=== PATIENT | female | born 1990 | race American Indian/Alaskan Native ===

== ENCOUNTER 2016-12-18 08:34 | Emergency (ER) | payer BC ==
[2016-12-18 08:54] VITALS: BP 131/88
[2016-12-18 09:08] LABS: Basophils % (Auto) 0.5 % (0.0-1.8); Eosinophils % (Auto) 0.1 % (0.0-4.3); Hematocrit 39.1 % (30.3-42.9); Hemoglobin 13.4 gm/dl (10.1-14.3); Mean Corpuscular HGB Conc 34 % (30-34); Mean Corpuscular Hemoglobin 32 pg (28-32); Mean Corpuscular Volume 93 fl (79-97); Platelet Count 240 K/mm3 (140-440); Red Cell Distribution Width 12.3 % (13.2-15.2); White Blood Count 9.1 K/mm3 (4.5-11.0)
[2016-12-18 09:25] LABS: Anion Gap 17 mmol/L; Blood Urea Nitrogen 10 mg/dL (7-17); Calcium 9.2 mg/dL (8.4-10.2); Carbon Dioxide 23 mmol/L (22-30); Glucose 96 mg/dL (65-100); Potassium 3.6 mmol/L (3.6-5.0); Sodium 135 mmol/L (137-145)
[2016-12-18 09:39] LABS: Bilirubin,Urine NEG (Negative); Blood,Urine NEG (Negative); Ketones,Urine 80 mg/dL (Negative); Leukocyte Esterase,Urine NEG (Negative); Mucus,Urine 3+ /HPF; Nitrite,Urine NEG (Negative); Urobilinogen,Urine < 2.0 mg/dL (<2.0)
[2016-12-18] MEDS ORDERED: ZOFRAN IV ONE (09:50)
[2016-12-18] MEDS ORDERED: LACTATED RINGERS 1,000 ML IV ONE (09:50)
--- NOTE | 2016-12-19 22:07 | Emergency Department Report ---
Entered by KENNY RODRIGUEZ, acting as scribe for PETTY XIAO NP. Vomiting/Diarrhea - HPI Chief Complaint: Nausea/Vomiting/Diarrhea Stated Complaint: VOMITTING PAST 3 DAYS Time Seen by Provider: 12/18/16 09:37 Duration: 3 Days Severity: moderate Nausea/Vomiting Severity: Mild Diarrhea Severity: None Pain Location: Other (no associated pain) Pain Severity: None Symptoms: No Watery Diarrhea, No Bloody diarrhea, No Fever, No Able to Tolerate Fluids (unable to tolerate food and fluid PO intake), No Recent Unusual Foods, No Recent Untreated Water, No Recent use of Antibiotics, No Family w/ Similar Symptoms, No Contacts w/ Similar Symptoms, No Rash, No Hematuria, No Recent URI Symptoms Other History: 26 year old female that is currently 6 weeks presents to the ED c/o nausea and vomiting that began 3 days ago. Patient states that she is unable to tolerate fluid and food PO intake. Notes last vomiting episode was last night. Denies vaginal bleeding, discharge, abdominal pain, SOB, fever, and chills. Denies any problems with her previous . Patient notes that her last [facility] appointment was last year, but states she has an appointment with her OB for this on 12/30/2016. LMP 12/04/2016. NKDA. ED Review of Systems ROS: Stated complaint: VOMITTING PAST 3 DAYS Other details as noted in HPI Comment: All other systems reviewed and negative Constitutional: other (not able to tolerate fluid and food PO intake). denies: chills, fever, weakness Eyes: denies: eye pain, eye discharge, vision change ENT: denies: throat pain Respiratory: denies: cough, orthopnea, shortness of breath, SOB with exertion, SOB at rest Cardiovascular: denies: chest pain Endocrine: no symptoms reported Gastrointestinal: nausea, vomiting. denies: abdominal pain, diarrhea Genitourinary: denies: dysuria, discharge, other (vaginal bleeding) Musculoskeletal: denies: back pain, joint swelling Skin: denies: rash Neurological: denies: numbness Psychiatric: denies: anxiety, depression Hematological/Lymphatic: denies: easy bleeding, easy bruising ED Past Medical Hx - Past Medical History Previous Medical History?: Yes Additional medical history: vaginal delivery 10-13-11 - Surgical History Past Surgical History?: No - Social History Smoking Status: Current Some Day Smoker Substance Use Type: Alcohol, Marijuana, Other - Medications Home Medications: Home Medications Medication Instructions Recorded Confirmed Last Taken Type Doxylamine/Pyridoxine HCl 1 each PO BID PRN 14 Days 12/18/16 Unknown Rx [Diclegis Dr 10-10 mg Tablet] Vomiting Diarrhea Exam - Exam General: Vital signs noted. No distress. Alert and acting appropriately. General: No apparent distress, normal gait, atraumatic. HEENT: No Pharyngeal Erythema, No Pharyngeal Exudates, No Moist Mucous Membranes , No Rhinorrhea, No Conjuctival Injection, No Frontal Tenderness, No Maxillary Tenderness Neck: No Adenopathy, No Rigidity Lungs: Yes Clear Lung Sounds, Yes Good Air Exchange, No Wheezes, No Stridor, No Cough, No Nasal Flaring, No Retractions, No Use of Accessory Muscles Heart exam: Regular: Yes, Murmur: No, Tachycardia: No Abdomen: Tenderness: No, Peritoneal Signs: No, Distention: No (patient is currently 6 weeks ), Hyperactive Bowel sounds: No Skin exam: Rash: No, Edema: No, Normal turgor: Yes Neurologic: Neurologic: Patient is alert and oriented x 3 , no deficits. Musculoskeletal: Unremarkable. Musculoskeletal: FROM, no tenderness. Exam: - Head Exam: atraumatic, normocephalic. - Back Exam: normal inspection. -Psychiatric exam: Present: normal affect, normal mood ED Course Vital Signs 12/18/16 08:50 Temperature 98.8 F Pulse Rate 62 Respiratory 20 Rate Blood Pressure 131/88 O2 Sat by Pulse 100 Oximetry - Reevaluation(s) Reevaluation #1: 12/18/16 11:16 Patient states was much better. Denies any nausea or vomiting currently. Reevaluation #2: 12/18/16 11:16 By mouth challenge. Patient tolerated well to apple juices. No vomiting or nausea noted. 12/18/16 11:16 ED Medical Decision Making - Lab Data Result diagrams: 12/18/16 09:00 12/18/16 09:00 - Medical Decision Making Ed course: This is a 26-year-old female that presents with nausea vomiting 3 days. Patient is 6 weeks . 1-lactating Ringer's bolus IV administered in the ED 2- Zofran 4 mg IV administered in the ED. 3- patient does not seem toxic or ill appearance. No any sign of distress. 4- attempted to perform ultrasound for heart rate. Due to this patient age unable to hear accurate heart rate. 5-patient agrees with discharge plan. No signs of any distress noted. Patient stated no further questions noted. 6- patient stated will follow-up with her [facility] appointment date. 7- I instructed the patient to increase fluids as much as possible. 8- prescribed [id number] by mouth and gave special instructions on how to take them. Critical care attestation.: If time is entered above; I have spent that time in minutes in the direct care of this critically ill patient, excluding procedure time. ED Disposition Clinical Impression: Hyperemesis gravidarum Disposition: DISCHARGED TO HOME OR SELFCARE Is pt being admited?: No Does the pt Need Aspirin: No Condition: Stable Instructions: Hyperemesis Gravidarum (ED) Additional Instructions: Please follow up with their [facility] appointment as soon as possible. If any symptoms such as vaginal bleeding, discharge, uncontrolled nausea vomiting, chest pain or shortness of breath with lobectomy 7. With the medication as prescribed as needed Take [id number] as needed: 2 tablets at bedtime on day 1 and 2; if symptoms persist take 1 tablet in morning and 2 tablets at bedtime on day 3; if symptoms persist, may increase to 1 tablet in morning, 1 tablet mid- afternoon, and 2 tablets at bedtime on day 4. Do not exceed 40mg (4 tablets) per day. Prescriptions: Doxylamine/Pyridoxine HCl [Diclegis Dr 10-10 mg Tablet] 1 each PO BID PRN 14 Days PRN Reason: Nausea Referrals: PRIMARY CARE, [Primary Care Provider] - 3-5 Days DAVIDA LLOYD MD [Staff Physician] - 3-5 Days This documentation as recorded by the MICHAEL ruiz JASMINE,accurately reflects the service I personally performed and the decisions made by me,PETTY XIAO, CELIA.
== END 2016-12-18 11:36 | disposition home or self-care (01) ==
LOC: ED 08:34
DX: O21.0 Mild hyperemesis gravidarum (principal); O99.331 Smoking (tobacco) complicating pregnancy, first trimester; O99.321 Drug use complicating pregnancy, first trimester; Z3A.01 Less than 8 weeks gestation of pregnancy
CPT/HCPCS: 36415; 80048; 81001; 81025; 85025; 96361; 96374; 99283; J2405; J7120

== ENCOUNTER 2017-06-29 14:36 | Outpatient (CLI) | payer BC ==
[2017-06-29 14:56] VITALS: BP 120/79
[2017-06-29] MEDS: LACTATED RINGERS 500 ML IV ONE (15:00)
== END 2017-06-29 17:52 | disposition home or self-care (01) ==
LOC: TRG 14:36
PROVIDERS: ATTEND Obstetrics & Gynecology
DX: O47.03 False labor before 37 completed weeks of gestation, third trimester (principal); Z3A.34 34 weeks gestation of pregnancy
CPT/HCPCS: 59025; 96360; J7120